=== PATIENT | female | born 2000 | race Caucasian/White ===

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

== ENCOUNTER 2020-08-19 15:23 | Observation (INO) | payer OTHER, SELFPAY ==
[~2020-08-19] VITALS: Ht 175.3 cm; Wt 56.5 kg
[2020-08-19 15:23] VITALS: BP_SYST 124
--- NOTE | 2020-08-19 15:23 | NUR ---
Placed in room 3. Placed on bus driver/monitor, blood pressure machine and pulse oximeter. To gown for exam. Side rails up. Report given to LUCERO Nicholas.
--- NOTE | 2020-08-19 15:25 | NUR ---
PT bib EMS after being found down from drug overdose. Pt reports taking suboxone and 1/2 of an oxycodone and then doesn't remember what happened after. Pt is nauseated and drive heaving. V/S stable, pt is afebrile. Currently resting in bed, will continue to monitor.
--- NOTE | 2020-08-19 15:30 | NUR ---
ER Dr. Sneed at bedside examining patient.
[2020-08-19] MEDS ORDERED: ONDANSETRON HCL 4 MG/2 ML VIAL IVP ONE (15:45)
[2020-08-19] MEDS ORDERED: LORazepam 2 MG/ML VIAL IVP ONE (15:45)
[2020-08-19] MEDS ORDERED: NACL 0.9% 1,000 ML IV ONE (15:45)
--- NOTE | 2020-08-19 15:45 | NUR ---
EKG performed at BS by EMT. Physician given copy of EKG for review.
--- NOTE | 2020-08-19 15:50 | NUR ---
Lab at bedside for blood draw.
[2020-08-19] MEDS ORDERED: NALOXONE HCL 2 MG/2 ML SYR IVP ONE (16:15)
[2020-08-19 16:23] LABS: BASOPHILS % (AUTO) 0.3 % (0.0-2.0); EOSINOPHILS # (AUTO) 0.1 K/uL (0.0-0.4); EOSINOPHILS % (AUTO) 0.8 % (0.0-4.0); HEMATOCRIT 37.9 % (36-48); HEMOGLOBIN 13.2 g/dL (12.0-16.0); LYMPHOCYTES # (AUTO) 1.2 K/uL (1.0-5.5); LYMPHOCYTES % (AUTO) 13.6 % (20.5-51.5); MEAN CORPUSCULAR HEMOGLOBIN 33 pg (27-31); MEAN CORPUSCULAR HGB CONC 35 % (32-36); MEAN CORPUSCULAR VOLUME 95 fL (79.0-98.0); MONOCYTES # (AUTO) 0.8 K/uL (0.0-1.0); MONOCYTES % (AUTO) 9.6 % (1.7-9.3); NEUTROPHILS # (AUTO) 6.6 K/uL (1.8-7.7); NEUTROPHILS % (AUTO) 75.7 % (40.0-70.0); PLATELET COUNT (AUTO) 156 K/uL (130-430); RED CELL DISTRIBUTION WIDTH 13.4 % (9.0-15.0); WHITE BLOOD COUNT (AUTO) 8.8 K/uL (4.5-11.0)
[2020-08-19 16:28] LABS: ANION GAP 10 (5-15); CALCIUM 8.1 mg/dL (8.4-11.0); CHLORIDE 99 mmol/L (98-107); GLUCOSE 142 mg/dL (70-99); SODIUM SERUM 135 mmol/L (136-145); UREA NITROGEN, BLOOD 10 mg/dL (8-21)
[2020-08-19 16:34] LABS: ALANINE AMINOTRANSFERASE 24 U/L (12-78); ALBUMIN 3.8 g/dL (3.4-4.8); ASPARTATE AMINOTRANSFERASE 19 U/L (10-37); GFR AFRICAN AMERICAN 137 mL/min (>90); TOTAL BILIRUBIN 0.7 mg/dL (0.0-1.0)
[2020-08-19 16:35] LABS: ALCOHOL, BLOOD < 3 mg/dL (<10)
--- NOTE | 2020-08-19 17:20 | NUR ---
Med rec and belongings list completed.
--- NOTE | 2020-08-19 17:24 | NUR ---
Pt reports she's unable to get up and give a urine sample, pt also refusing catheter. aware
[2020-08-19] MEDS ORDERED: PIPERACILLIN/TAZO 3.375 GM in NS 50 ML IV ONE (17:45)
[2020-08-19 17:51] LABS: BILIRUBIN,URINE NEGATIVE (NEGATIVE); BLOOD, URINE 3+ (NEGATIVE); COLOR,URINE YELLOW (YELLOW); GLUCOSE,URINE NEGATIVE (NEGATIVE); KETONES,URINE 1+ (NEGATIVE); LEUKOCYTE ESTERASE ,URINE TRACE (NEGATIVE); NITRITE, URINE POSITIVE (NEGATIVE); PROTEIN URINE NEGATIVE (NEGATIVE); UROBILINOGEN,URINE 0.2 (0.2-1.0)
[2020-08-19 17:57] LABS: CLARITY/URINE HAZY (CLEAR)
[2020-08-19 17:59] LABS: BARBITURATE, URINE NEGATIVE (NEG <=200); BENZODIAZEPINE, URINE NEGATIVE (NEG <=150); CANNABINOID, URINE POSITIVE (NEG <=50); COCAINE, URINE NEGATIVE (NEG <=150); METHAMPHETAMINES SCREEN,URINE NEGATIVE (NEG <=500); OPIATE, URINE NEGATIVE (NEG <=100); PHENCYCLIDINE SCREEN,URINE NEGATIVE (NEG <=25); UR TRICYCLIC ANTIDEPRESSANTS NEGATIVE (NEG <=300); URINE AMPHETAMINE NEGATIVE (NEG <=500); URINE METHADONE NEGATIVE (NEG <=200); URINE OXYCODONE SCREEN NEGATIVE (NEG <=100); URINE PROPOXYPHENE SCREEN NEGATIVE (NEG <=300)
[2020-08-19 18:00] LABS: BACTERIA,URINE MANY /HPF (None Seen); MUCUS,URINE None Seen /LPF (None Seen); RBC,URINE NONE SEEN /HPF (0-3)
[2020-08-19] MEDS ORDERED: PIPERACILLIN/TAZOBACTAM 3.375 GM/VIAL (ZOSYN) IV ONE (18:06)
[2020-08-19] MEDS ORDERED: POTASSIUM CHLORIDE 20 MEQ/PKT PACKET PO ONE (18:15)
[2020-08-19] MEDS ORDERED: ACETAMINOPHEN 325 MG TABLET PO PRN (18:15)
[2020-08-19] MEDS ORDERED: HYDROcodone/ACETAMIN 10-325 MG TAB PO PRN (18:15)
[2020-08-19] MEDS ORDERED: HYDROcodone/ACETAMIN 5-325 MG TAB (NORCO/ VICODIN) PO PRN (18:15)
--- NOTE | 2020-08-19 18:46 | NUR ---
Patient will be admitted to care of Dr. Haddad. Admitted to tele unit. Will go to room 119B. Belongings list completed. Complete and up to date summary report printed. SBAR report to be given at bedside with opportunity for questions. IV site patent and intact.
--- NOTE | 2020-08-19 19:00 | NUR ---
ADMISSION NOTE Received patient from ER via gurney. Patient admitted with diagnosis of OVERDOSE. Patient is awake, alert, oriented X 4. Patient oriented to hospital room, call light, toileting, pain management and safety-teach back done. Patient informed that RENETTA will be HER nurse and that their room number is 119A. Personal belongings checked and Belongings List documented. Call light within reach.
[2020-08-19 19:10] VITALS: BP_SYST 108
[2020-08-19] MEDS: D5/0.45 NS 1,000 ML IV SCH (20:17)
[2020-08-19] MEDS: ONDANSETRON HCL 4 MG/2 ML VIAL IVP PRN (20:30)
--- NOTE | 2020-08-19 20:30 | NUR ---
NAUSEA/VOMITING/NEW IV SITE/EDUCATED: CALL LIGHT PATIENT COMPLAINED OF FEELING NAUSEOUS, VOMITED 200 ML CLEAR LIQUID IN VOMIT BAG, ZOFRAN TO BE ADMINISTERED PER PRN ORDER. PATIENT DENIES PAIN OR SOB. BREATHING EVEN AND UNLABORED. NEW IV SITE INSERTED BY AN NURSE, ISABELA, LEFT FOREARM 22 GAUGE, PATIENT TOLERATED WELL. IVF INFUSING WELL. IV SITE IS PATENT, NO SIGNS OF INFILTRATION OR INFECTION NOTED. PATIENT COMPLAINED OF PAIN FROM PREVIOUS IV SITE, LEFT WRIST. CALL LIGHT WITH PATIENT, INSTRUCTED TO USE CALL LIGHT FOR ASSISTANCE, PATIENT VERBALIZED UNDERSTANDING, PATIENT DEMONSTRATED BACK PROPER USE. BED ALARM ON. BED IS LOCKED AND AT LOWEST POSITION. WILL CONTINUE TO MONITOR.
--- NOTE | 2020-08-19 21:40 | NUR ---
ASSISTED TO BATHROOM/REFUSED BED ALARM/AGITATED/ANXIOUS PATIENT REQUESTED ASSISTANCE TO BATHROOM, GAIT STEADY, ASSISTED BACK TO BED. PATIENT STATED SHE DOESN'T NEED THE BED ALARM ANYMORE, REFUSES TO HAVE IT ON AT THIS TIME, DESPITE BEING EDUCATED ON ITS PURPOSE AND BENEFIT. PATIENT VERBALIZED UNDERSTANDING BUT STILL REFUSES. PATIENT COMPLAINS OF FEELING AGITATED AND FEELING ANXIOUS, PRN MEDICATION ADMINISTERED, PATIENT EDUCATED ON ITS PURPOSE AND SIDE EFFECTS, INSTRUCTED TO CALL FOR ASSISTANCE WHEN AMBULATING, PATIENT DEMONSTRATED BACK PROPER USE OF CALL LIGHT AND VERBALIZED UNDERSTANDING. WILL CONTINUE TO MONITOR AND REASSESS.
[2020-08-19] MEDS: LORazepam 2 MG/ML VIAL IVP PRN (21:41)
--- NOTE | 2020-08-19 23:20 | NUR ---
ROUNDS PATIENT ASLEEP AT THIS TIME. NO S/S OF ACUTE DISTRESS NOTED. BREATHING IS EVEN AND UNLABORED. CALL LIGHT WITH PATIENT. WILL CONTINUE TO MONITOR.
[2020-08-20] VITALS: BP_SYST 110
--- NOTE | 2020-08-20 00:20 | NUR ---
BRADYCARDIA PATIENT'S HEART RATE AT 44-48 ON TELE MONITOR. PATIENT WOKEN UP, ASSESSED, DENIES CHEST PAIN AND SOB. HEART RATE WENT BACK UP TO 80's WHEN AWAKE. CALL LIGHT WITH PATIENT. WILL CONTINUE TO MONITOR AND REASSESS.
--- NOTE | 2020-08-20 02:00 | NUR ---
BRADYCARDIA RN MADE AWARE BY TRAY ROOM WORKER THAT HEART RATE SUSTAINING AT 44-48. PATIENT WOKEN UP, ASSESSED, PATIENT DENIES ANY PAIN OR SOB. PATIENT IS AOX4. BREATHING EVEN AND UNLABORED. HEART RATE GOES BACK UP TO 80's WHEN AWAKE. CALL LIGHT WITH PATIENT. WILL CONTINUE TO MONITOR.
[2020-08-20] MEDS: ONDANSETRON HCL 4 MG/2 ML VIAL IVP PRN (04:56)
[2020-08-20] MEDS: LORazepam 2 MG/ML VIAL IVP PRN (04:57)
--- NOTE | 2020-08-20 04:57 | NUR ---
ANXIETY/PARANOID PATIENT IS ANXIOUS AT THIS TIME, CRYING, STATES THAT SHE FEELS LIKE SOMEONE IS COMING IN TO ATTACK HER. PATIENT REASSURED, BREATHING EXERCISE DONE, PATIENT APPEARS TO HAVE CALMED DOWN A BIT, PRN MEDICATION FOR ANXIETY ADMINISTERED. CALL LIGHT WITH PATIENT. WILL CONTINUE TO MONITOR .
[2020-08-20] MEDS: D5/0.45 NS 1,000 ML IV SCH (05:00)
--- NOTE | 2020-08-20 06:36 | NUR ---
IV START AND END TIME IVF ORDERED, STARTED AT 08/19/2020 20:17 (8:17 PM). END TIME WAS 0500. NEW IV BAG SCANNED AND HUNG AT THIS TIME. WILL ENDORSE TO DAYSHIFT NURSE.
--- NOTE | 2020-08-20 06:38 | NUR ---
CLOSING NOTE PATIENT IN BED SLEEPING AT THIS TIME. NO S/S OF ACUTE DISTRESS NOTED. BREATHING IS EVEN AND UNLABORED. HOB RAISED. IVF INFUSING WELL, IV SITE IS PATENT, NO SIGNS OF INFILTRATION OR INFECTION NOTED. ALL NEEDS MET THROUGHOUT SHIFT. FALL AND SAFETY PRECAUTIONS MAINTAINED THROUGHOUT SHIFT. WILL CONTINUE TO MONITOR UNTIL PATIENT CARE IS ENDORSED TO ONCOMING DAYSHIFT NURSE.
[2020-08-20 06:41] LABS: BASOPHILS % (AUTO) 0.2 % (0.0-2.0); EOSINOPHILS % (AUTO) 0.7 % (0.0-4.0); HEMATOCRIT 38.3 % (36-48); HEMOGLOBIN 13.1 g/dL (12.0-16.0); LYMPHOCYTES # (AUTO) 1.5 K/uL (1.0-5.5); LYMPHOCYTES % (AUTO) 24.1 % (20.5-51.5); MEAN CORPUSCULAR HEMOGLOBIN 33 pg (27-31); MEAN CORPUSCULAR HGB CONC 34 % (32-36); MEAN CORPUSCULAR VOLUME 95 fL (79.0-98.0); MONOCYTES # (AUTO) 0.9 K/uL (0.0-1.0); MONOCYTES % (AUTO) 15.4 % (1.7-9.3); NEUTROPHILS # (AUTO) 3.6 K/uL (1.8-7.7); NEUTROPHILS % (AUTO) 59.6 % (40.0-70.0); PLATELET COUNT (AUTO) 160 K/uL (130-430); RED BLOOD CELL COUNT(AUTO) 4.02 MIL/uL (4.2-6.2); RED CELL DISTRIBUTION WIDTH 13.4 % (9.0-15.0); WHITE BLOOD COUNT (AUTO) 6.1 K/uL (4.5-11.0)
[2020-08-20 06:50] LABS: CALCIUM 8.3 mg/dL (8.4-11.0); CREATININE 0.52 mg/dL (0.55-1.30); PHOSPHORUS 2.5 mg/dL (2.7-4.5); POTASSIUM 3.1 mmol/L (3.5-5.1)
--- NOTE | 2020-08-20 07:29 | NUR ---
Opening Note received bedside SBAR report from plate grinder RN, patient resting in bed, respirations even and unlabored on room air, no acute distress noted, educated patient on use of call light and asked to call for assistance, patient verbalized understanding, call light in reach, educated patient on use of bed alarm for patient safety, patient verbalized understanding, patient refusing bed alarm, bed in low and locked position.
[2020-08-20 08:26] VITALS: BP_SYST 111
--- NOTE | 2020-08-20 09:06 | NUR ---
HIGH ALERT NOTE: Called Dr. Heath Haddad back at [phone] identified within the medical roster to verify physician authenticity.
--- NOTE | 2020-08-20 09:09 | NUR ---
RN Rounds patient tearful, patient states that she is anxious, attempted to calm patient, educated patient on use and side effects of PRN ativan for anxiety, patient verbalized understanding, patient refusing PRN ativan at this time, patient requesting to have her daughter and boyfriend visit, per recharger visitors are not allowed at this time, informed patient that visitors are not allowed at this time due to COVID 19 pandemic, patient verbalized understanding, patient having video call with her family.
[2020-08-20] MEDS ORDERED: POTASSIUM CHLORIDE 20 MEQ TAB.PRT.SR PO ONE (09:15)
--- NOTE | 2020-08-20 10:18 | NUR ---
[facility] Patient does not wish to proceed with medical care. Patient given information related to possible complications, up to and including , which could occur as a result of leaving hospital at this time. Patient verbalizes understanding of risks involved leaving against medical advice. Patient has signed AMA form. Two IV catheters removed, catheters intact, no bleeding, tele monitor removed, all belongings sent with patient, patient ambulated to parking lot. Addendum: 08/20/20 at 1045 by Bridgette Zelaya RN Dr. Irnieo Haddad aware that patient has left [facility]
--- NOTE | 2020-08-20 10:54 | NUR ---
SS Notes: WEB USER EXPERIENCE STRATEGIST received a referral from nursing to see patient for "drug overdose of narcotics". WEB USER EXPERIENCE STRATEGIST attempted to meet with patient who went AMA.
--- NOTE | 2020-08-20 11:00 | NUR ---
intravenous fluids late entry du to patient care D5NS at 100 ml/hr started on 08/19/20 at 20:17 completed at 0500 on 08/20/20 and was followed by another bag of d5ns at 100 ml per hour. 10:10 am 08/20/20 IVf ogf d5ns discontinued prior patient leaving AMA
== END 2020-08-20 18:45 | disposition left against medical advice (07) ==
LOC: SED 15:23 → STU 18:44 → SMU 08-20 10:36
PROVIDERS: ADMIT Preventive Medicine Preventive Medicine/Occupational Environmental Medicine; ATTEND Preventive Medicine Preventive Medicine/Occupational Environmental Medicine
DX: F12.10 Cannabis abuse, uncomplicated (principal); Z20.828 Contact with and (suspected) exposure to other viral communicable diseases; F11.20 Opioid dependence, uncomplicated; E87.2 Acidosis; E87.1 Hypo-osmolality and hyponatremia; E87.6 Hypokalemia; E83.51 Hypocalcemia; E78.1 Pure hyperglyceridemia; R31.9 Hematuria, unspecified; Z79.899 Other long term (current) drug therapy
CPT/HCPCS: 36415 ×2; 36600; 71045; 80048; 80053; 80307; 81000; 82803; 83735; 84100; 84484; 85025 ×2; 87086; 87426; 93005; 96361 ×3; 96374; 96375; 96376 ×2; 99285; G0378; G0482; J2060 ×2; J2310; J2405 ×2; J2543; J7042